=== PATIENT | female | born 1935 | race Caucasian/White ===

== ENCOUNTER → 2016-07-25 | Outpatient (CLI) | payer MEDICARE, OTHER ==
[~2016-07-25] MED LIST: ACCUPRIL20 MG PO; ALPRAZOLAM0.5 MG PO; CYMBALTA30 MG PO; DURAGESIC 50 MCG1 EA TOP; ENSURE LIQUID237 ML PO; ENSURE PLUS/RESO1 EA PO; HYDRALAZINE HCL50 MG PO; LEVAQUIN250 MG PO; MEGACE TAB 40 M40 MG PO; NORCO 10-325 T1 EACH PO; NORVASC 5 MG TAB5 MG PO; PROTONIX 40 MG40 M1 PO; SYNTHROID25 MCG PO; ZITHROMAX250 MG PO
== END ==
LOC: HH 11:30
PROVIDERS: Internal Medicine
DX: N18.9 Chronic kidney disease, unspecified (principal)
CPT/HCPCS: 80048; 82550

== ENCOUNTER → 2021-03-22 | Outpatient (CLI) | payer MEDICARE, OTHER ==
[~2021-03-22] MED LIST changes: +HYDROXYZINE HCL25 MG PO; +OMNICEF 300 MG300 MG PO; +PERCOCET 5/325 T1 EA PO; +SYNTHROID175 MCG PO; -SYNTHROID25 MCG PO; +VANCOMYCIN IV
== END ==
LOC: PHH 14:16
PROVIDERS: Internal Medicine
DX: E74.04 McArdle disease (principal)
CPT/HCPCS: 80048; 82550

== ENCOUNTER → 2021-08-05 | Day surgery (SDC) | payer MEDICARE, OTHER ==
[~2021-08-05] MED LIST changes: +AMLODIPINE BESYL5 MG PO; +BACTRIM DS TAB1 EACH PO; -DURAGESIC 50 MCG1 EA TOP; +FENTANYL1 EAC2 TOP; +HYDROCODON-ACE1 EAC6 PO; +KLOR-CON M2020 MEQ PO; +LEVOTHYROXINE50 MCG PO; +NARCAN4 MG INH; -NORCO 10-325 T1 EACH PO; -NORVASC 5 MG TAB5 MG PO; +POTASSIUM99 M1 PO; +SODIUM BICARBO650 MG PO; +XYZAL5 MG PO
== END | disposition home or self-care (01) ==
LOC: OR 06:53
DX: Z45.2 Encounter for adjustment and management of vascular access device (principal); I12.9 Hypertensive chronic kidney disease with stage 1 through stage 4 chronic kidney disease, or unspecified chronic kidney disease; N18.9 Chronic kidney disease, unspecified; I25.10 Atherosclerotic heart disease of native coronary artery without angina pectoris; K21.9 Gastro-esophageal reflux disease without esophagitis; E78.5 Hyperlipidemia, unspecified; E03.9 Hypothyroidism, unspecified; Z88.1 Allergy status to other antibiotic agents; Z79.899 Other long term (current) drug therapy; Z20.822 Contact with and (suspected) exposure to COVID-19
CPT/HCPCS: 71045; 77001; C1769; C1788; J0690; J1642; J2001; J2405; J2704; J3010; J7030; J7040; J7120

== ENCOUNTER 2021-08-31 13:58 | Inpatient (IN) | payer MEDICARE, OTHER ==
[~2021-08-31] VITALS: Ht 167.6 cm; Wt 63.5 kg
[~2021-08-31 13:58] MED LIST changes: -BACTRIM DS TAB1 EACH PO
[2021-08-31 14:42] LABS: HEMOGLOBIN 12.3 gm/dl (12.3-15.3); RED BLOOD COUNT 4.12 M/UL (4.00-5.10); WHITE BLOOD COUNT 7.6 K/UL (4.5-11.0)
[2021-08-31] MEDS ORDERED: BACTRIM DS TAB1 EACH PO (16:49)
[2021-09-01 04:45] LABS: HEMOGLOBIN 11.2 gm/dl (12.3-15.3); RED BLOOD COUNT 3.82 M/UL (4.00-5.10)
[2021-09-01 04:51] LABS: WHITE BLOOD COUNT 4.7 K/UL (4.5-11.0)
[2021-09-02 05:11] LABS: HEMOGLOBIN 10.8 gm/dl (12.3-15.3); RED BLOOD COUNT 3.67 M/UL (4.00-5.10); WHITE BLOOD COUNT 5.3 K/UL (4.5-11.0)
--- NOTE | 2021-09-03 07:00 | NUR ---
DR MURO AT BEDSIDE REQUESTED 1% LIDOCAINE, I ASKED DID SHE NEED ME TO GET CONSENT FOR A PORT REMOVAL AND SHE SAID YES. CONSENT SIGNED. PT HAS A DRESSING TO HER LEFT UPPER CHEST WALL. SCANT AMOUNT OF BLOODY SHADOWING NOTED TO DRESSING.
[2021-09-03] MEDS ORDERED: ZYVOX600 MG PO (10:01)
[2021-09-03] MEDS ORDERED: ASPIRIN EC81 MG PO (10:01)
== END 2021-09-03 13:17 | disposition home health service (06) | DRG 315 ==
LOC: ER1 13:58 → MED SURG 4 15:51 → CDU 15:51 → MED SURG 4 09-01 00:48
PROVIDERS: Emergency Medicine; ADMIT Internal Medicine
PROC: 0JPT0WZ Removal of Totally Implantable Vascular Access Device from Trunk Subcutaneous Tissue and Fascia, Open Approach (ICD-10-PCS; principal; 2021-09-03)
DX: T82.848A Pain due to vascular prosthetic devices, implants and grafts, initial encounter (principal); N17.9 Acute kidney failure, unspecified; L03.115 Cellulitis of right lower limb; M60.9 Myositis, unspecified; I12.9 Hypertensive chronic kidney disease with stage 1 through stage 4 chronic kidney disease, or unspecified chronic kidney disease; N18.30 Chronic kidney disease, stage 3 unspecified; E03.9 Hypothyroidism, unspecified; E11.22 Type 2 diabetes mellitus with diabetic chronic kidney disease; I25.10 Atherosclerotic heart disease of native coronary artery without angina pectoris; M25.552 Pain in left hip; I44.7 Left bundle-branch block, unspecified; R07.89 Other chest pain; Z79.899 Other long term (current) drug therapy; Z98.890 Other specified postprocedural states; Z90.49 Acquired absence of other specified parts of digestive tract; Z90.710 Acquired absence of both cervix and uterus; I25.2 Old myocardial infarction; Z79.82 Long term (current) use of aspirin
CPT/HCPCS: 0240U; 36415; 71045; 73502; 80048; 80053; 80202; 81001; 82550; 82553; 83605; 83690; 83735; 83874; 83880; 84100; 84484; 85025; 85027; 85610; 85730; 87040; 87086; 93005; 93971; 96365; 96366; 99285; J1650; J2930; J3370; J7030; J7070